=== PATIENT | female | born 1965 | race Caucasian/White ===

== ENCOUNTER 2017-08-22 11:59 | Emergency (ER) | payer OTHER ==
[~2017-08-22] VITALS: Ht 165.1 cm; Wt 70.0 kg
[2017-08-22 12:01] VITALS: BP 115/80; PULSE 128; RESP 20; TEMP 98.8; O2SAT 97
--- NOTE | 2017-08-22 12:25 | PD ---
HPI Chief Complaint: Chest Pain Time Seen by Provider: 12:09 Travel History International Travel<30 days: No Contact w/Intl Traveler<30days: No Traveled to known affect area: No History of Present Illness HPI 51-year-old female presents to emergency department complaining of 20 episodes of nonbloody vomiting since last night. Patient states that she currently has mild, dull lower midsternal chest discomfort after the episodes of vomiting. Patient states the pain does not radiate. States she has had increased shortness of breath especially with supine position but decreases with sitting up. States the pain also increases with laying down. She has had an episode of this prior and her bariatric surgeon called this a "angry stomach" states that previously she has had to decrease the fluid in her lap band to reduce the symptoms. She had let insurgent 2009. Denies any other surgeries or medical issues. Does not take any other medications except for [id number] Prilosec. Patient does not know why she started vomiting. Denies inciting events. PFSH Social History Tobacco Use: No Allergies-Medications (Allergen,Severity, Reaction): Coded Allergies: No Known Allergies (Unverified , 08/22/17) Reported Meds & Prescriptions Reported Meds & Active Scripts Active No Active Prescriptions or Reported Medications Review of Systems Except as stated in HPI: all other systems reviewed are Neg Physical Exam Narrative GENERAL: Well-nourished, well-developed patient. SKIN: Focused skin assessment warm/dry. HEAD: Normocephalic. EYES: No scleral icterus. No injection or drainage. NECK: Supple, trachea midline. No JVD or lymphadenopathy. CARDIOVASCULAR: Regular rate and rhythm without murmurs, gallops, or rubs. RESPIRATORY: Breath sounds equal bilaterally. No accessory muscle use. GASTROINTESTINAL: Abdomen soft, non-tender, nondistended. Positive bowel sounds. No hepato-splenomegaly, or palpable masses. No guarding. Noticeable LAP-BAND port in the left mid abdomen region MUSCULOSKELETAL: No cyanosis, or edema. BACK: Nontender without obvious deformity. No CVA tenderness. Data Data Last Documented VS Vital Signs Date Time Temp Pulse Resp B/P (MAP) Pulse Ox O2 Delivery O2 Flow Rate FiO2 08/22/17 15:08 08/22/17 12:44 98 Room Air 08/22/17 12:01 98.8 128 20 Orders Orders Electrocardiogram (08/22/17 12:18) Ckmb (Isoenzyme) Profile (08/22/17 12:18) Complete Blood Count With Diff (08/22/17 12:18) Comprehensive Metabolic Panel (08/22/17 12:18) Magnesium (Mg) (08/22/17 12:18) Prothrombin Time / Inr (Pt) (08/22/17 12:18) Act Partial Throm Time (Ptt) (08/22/17 12:18) Troponin I (08/22/17 12:18) Lipase (08/22/17 12:18) Chest, Single Ap (08/22/17 12:18) Ecg Monitoring (08/22/17 12:18) Bilateral Bp Monitoring (08/22/17 12:18) Iv Access Insert/Monitor (08/22/17 12:18) Oximetry (08/22/17 12:18) Oxygen Administration (08/22/17 12:18) Aspirin Chew (Aspirin Chew) (08/22/17 12:30) Sodium Chloride 0.9% Flush (Ns Flush) (08/22/17 12:30) Sodium Chlor 0.9% 1000 Ml Inj (Ns 1000 M (08/22/17 12:30) Urinalysis - C+S If Indicated (08/22/17 13:15) Ed Discharge Order (08/22/17 14:37) Labs Laboratory Tests Test 08/22/17 12:20 08/22/17 14:11 White Blood Count 17.4 TH/MM3 Red Blood Count 5.35 MIL/MM3 Hemoglobin 15.8 GM/DL Hematocrit 45.8 % Mean Corpuscular Volume 85.6 FL Mean Corpuscular Hemoglobin 29.6 PG Mean Corpuscular Hemoglobin Concent 34.6 % Red Cell Distribution Width 12.6 % Platelet Count 236 TH/MM3 Mean Platelet Volume 7.3 FL Neutrophils (%) (Auto) 91.7 % Lymphocytes (%) (Auto) 5.1 % Monocytes (%) (Auto) 3.0 % Eosinophils (%) (Auto) 0.0 % Basophils (%) (Auto) 0.2 % Neutrophils # (Auto) 16.0 TH/MM3 Lymphocytes # (Auto) 0.9 TH/MM3 Monocytes # (Auto) 0.5 TH/MM3 Eosinophils # (Auto) 0.0 TH/MM3 Basophils # (Auto) 0.0 TH/MM3 CBC Comment DIFF FINAL Differential Comment Prothrombin Time 10.5 SEC Prothromb Time International Ratio 1.0 RATIO Activated Partial Thromboplast Time 23.9 SEC Blood Urea Nitrogen 10 MG/DL Creatinine 1.03 MG/DL Random Glucose 106 MG/DL Total Protein 8.1 GM/DL Albumin 4.1 GM/DL Calcium Level 9.8 MG/DL Magnesium Level 1.7 MG/DL Alkaline Phosphatase 81 U/L Aspartate Amino Transf (AST/SGOT) 21 U/L Alanine Aminotransferase (ALT/SGPT) 27 U/L Total Bilirubin 1.4 MG/DL Sodium Level 138 MEQ/L Potassium Level 4.2 MEQ/L Chloride Level 103 MEQ/L Carbon Dioxide Level 26.6 MEQ/L Anion Gap 8 MEQ/L Estimat Glomerular Filtration Rate 56 ML/MIN Total Creatine Kinase 50 U/L Troponin I LESS THAN 0.02 NG/ML Lipase 157 U/L Urine Color YELLOW Urine Turbidity CLEAR Urine pH 6.5 Urine Specific [place] 1.006 Urine Protein NEG mg/dL Urine Glucose (UA) NEG mg/dL Urine Ketones 10 mg/dL Urine Occult Blood NEG Urine Nitrite NEG Urine Bilirubin NEG Urine Urobilinogen LESS THAN 2.0 MG/DL Urine Leukocyte Esterase SMALL Urine RBC 1 /hpf Urine WBC 2 /hpf Urine Squamous Epithelial Cells 2 /hpf Urine Transitional Epithelial Cells <1 /hpf Urine Bacteria RARE /hpf Urine Mucus FEW /lpf Microscopic Urinalysis Comment CULT NOT INDICATED MDM Medical Decision Making Medical Screen Exam Complete: Yes Emergency Medical Condition: Yes Differential Diagnosis Lab pain, palpitations, vomiting, acute abdomen Narrative Course 51-year-old female presents to emergency department complaining of 20 episodes of nonbloody vomiting since last night. Patient states that she currently has mild, dull lower midsternal chest discomfort after the episodes of vomiting. Patient states the pain does not radiate. States she has had increased shortness of breath especially with supine position but decreases with sitting up. States the pain also increases with laying down. She has had an episode of this prior and her bariatric surgeon called this a "angry stomach" states that previously she has had to decrease the fluid in her lap band to reduce the symptoms. She had let insurgent 2009. Denies any other surgeries or medical issues. Does not take any other medications except for [id number] Prilosec. Patient does not know why she started vomiting. Denies inciting events. Vital signs- tachycardia present. EKG demonstrates sinus tachycardia right bundle branch block without obvious ST depression or elevation. Last Impressions Chest X-Ray 08/22/17 1218 Signed Impressions: Service Date/Time: Tuesday, August 22, 2017 12:22 - CONCLUSION: No acute disease. Wil Young MD Laboratory Tests Test 08/22/17 12:20 08/22/17 14:11 White Blood Count 17.4 TH/MM3 Red Blood Count 5.35 MIL/MM3 Hemoglobin 15.8 GM/DL Hematocrit 45.8 % Mean Corpuscular Volume 85.6 FL Mean Corpuscular Hemoglobin 29.6 PG Mean Corpuscular Hemoglobin Concent 34.6 % Red Cell Distribution Width 12.6 % Platelet Count 236 TH/MM3 Mean Platelet Volume 7.3 FL Neutrophils (%) (Auto) 91.7 % Lymphocytes (%) (Auto) 5.1 % Monocytes (%) (Auto) 3.0 % Eosinophils (%) (Auto) 0.0 % Basophils (%) (Auto) 0.2 % Neutrophils # (Auto) 16.0 TH/MM3 Lymphocytes # (Auto) 0.9 TH/MM3 Monocytes # (Auto) 0.5 TH/MM3 Eosinophils # (Auto) 0.0 TH/MM3 Basophils # (Auto) 0.0 TH/MM3 CBC Comment DIFF FINAL Differential Comment Prothrombin Time 10.5 SEC Prothromb Time International Ratio 1.0 RATIO Activated Partial Thromboplast Time 23.9 SEC Blood Urea Nitrogen 10 MG/DL Creatinine 1.03 MG/DL Random Glucose 106 MG/DL Total Protein 8.1 GM/DL Albumin 4.1 GM/DL Calcium Level 9.8 MG/DL Magnesium Level 1.7 MG/DL Alkaline Phosphatase 81 U/L Aspartate Amino Transf (AST/SGOT) 21 U/L Alanine Aminotransferase (ALT/SGPT) 27 U/L Total Bilirubin 1.4 MG/DL Sodium Level 138 MEQ/L Potassium Level 4.2 MEQ/L Chloride Level 103 MEQ/L Carbon Dioxide Level 26.6 MEQ/L Anion Gap 8 MEQ/L Estimat Glomerular Filtration Rate 56 ML/MIN Total Creatine Kinase 50 U/L Troponin I LESS THAN 0.02 NG/ML Lipase 157 U/L Urine Color YELLOW Urine Turbidity CLEAR Urine pH 6.5 Urine Specific [place] 1.006 Urine Protein NEG mg/dL Urine Glucose (UA) NEG mg/dL Urine Ketones 10 mg/dL Urine Occult Blood NEG Urine Nitrite NEG Urine Bilirubin NEG Urine Urobilinogen LESS THAN 2.0 MG/DL Urine Leukocyte Esterase SMALL Urine RBC 1 /hpf Urine WBC 2 /hpf Urine Squamous Epithelial Cells 2 /hpf Urine Transitional Epithelial Cells <1 /hpf Urine Bacteria RARE /hpf Urine Mucus FEW /lpf Microscopic Urinalysis Comment CULT NOT INDICATED This patient denies symptoms currently. Says that she feels well and requests to see a bariatric specialist for deflation of her lap band. Patient is from out of town and will be and [place] until Tuesday. Patient is willing to wait until tomorrow to visit the specialist. Reassessed pt. Says she feels better, water tolerated well. There were no episodes of abdominal pain, chest pain, or vomiting in the emergency department today. I discussed this patient with Dr. Padilla and he agreed with the treatment plan. I consulted with Dr. Blunt regarding this patient's case. States that she should call the office tomorrow for evaluation and possible treatment. I explained to the patient my findings and concerns. I offered the patient inpatient admission for evaluation along with outpatient evaluation. Patient opted for outpatient evaluation for her lap band. Because patient has had these symptoms prior, I did not feel imaging was necessary at this time. Cardiac etiology was the least likely cause of her symptoms based off of her history and physical. She has leukocytosis but suspect this is secondary to her recent vomiting episodes. Patient was to follow-up with her primary care physician. Return to the emergency room for worsening or persistent symptoms. Advised to call Dr. Blunt's office tomorrow for evaluation and possible treatments. Patient states understanding and will comply. Diagnosis Primary Impression: Vomiting Qualified Codes: R11.2 - Nausea with vomiting, unspecified Referrals: Bret Gurrola MD Additional Instructions: Call [phone] tomorrow for an appointment at Dr. Blunt's office, general surgeon regarding her LAP-BAND. Follow up with your primary care physician within 2-3 days. If your symptoms persist or worsen, return to the emergency department. Continue to take small amounts of fluid and food as tolerated. Scripts No Active Prescriptions or Reported Meds Disposition: 01 DISCHARGE HOME Condition: Stable Gretta Howell Aug 22, 2017 12:25
[2017-08-22] MEDS ORDERED: SODIUM CHLOR 0.9% 1000 ML INJ 1,000 ML IV ONE (12:30)
[2017-08-22] MEDS ORDERED: ASPIRIN 81 MG CHEW TAB PO ONE (12:30)
[2017-08-22] MEDS ORDERED: SODIUM CHLORIDE 0.9% FLUSH 10 ML FLUSH IVF PRN (12:30)
[2017-08-22 12:44] VITALS: O2SAT 97
[2017-08-22 12:48] LABS: BASOPHIL % 0.2 % (0.0-2.0); HEMATOCRIT 45.8 % (35.0-46.0); HEMOGLOBIN 15.8 GM/DL (11.6-15.3); LYMPH % 5.1 % (9.0-44.0); LYMPHOCYTE # 0.9 TH/MM3 (1.0-4.8); MEAN CELL VOLUME 85.6 FL (80.0-100.0); MEAN CORPUSCULAR HEMOGLOBIN 29.6 PG (27.0-34.0); MEAN CORPUSCULAR HGB CONC 34.6 % (32.0-36.0); MEAN PLATELET VOLUME 7.3 FL (7.0-11.0); MONOCYTE # 0.5 TH/MM3 (0-0.9); NEUT % 91.7 % (16.0-70.0); PLATELET COUNT 236 TH/MM3 (150-450); RED BLOOD COUNT 5.35 MIL/MM3 (4.00-5.30); RED CELL DISTRIBUTION WIDTH 12.6 % (11.6-17.2); WHITE BLOOD COUNT 17.4 TH/MM3 (4.0-11.0)
[2017-08-22 12:51] LABS: PROTHROMBIN TIME - PATIENT 10.5 SEC (9.8-11.6)
[2017-08-22 12:59] LABS: ALBUMIN 4.1 GM/DL (3.4-5.0); ALT (GPT) 27 U/L (10-53); AST (GOT) 21 U/L (15-37); BICARBONATE 26.6 MEQ/L (21.0-32.0); BLOOD UREA NITROGEN 10 MG/DL (7-18); CALCIUM 9.8 MG/DL (8.5-10.1); CHLORIDE 103 MEQ/L (98-107); CREATININE 1.03 MG/DL (0.50-1.00); GLOMERULAR FILTRATION RATE 56 ML/MIN (>89); GLUCOSE,RANDOM 106 MG/DL (74-106); LIPASE 157 U/L (73-393); MAGNESIUM 1.7 MG/DL (1.5-2.5); SODIUM (NA) 138 MEQ/L (136-145)
--- NOTE | 2017-08-22 12:59 | RADRPT ---
EXAM DATE/TIME: 08/22/2017 12:22 [facility] COMPARISON: No previous studies available for comparison. INDICATIONS : Chest pain. MEDICAL HISTORY : None. SURGICAL HISTORY : Lap band. ENCOUNTER: Initial ACUITY: 2 days PAIN SCORE: 5/10 LOCATION: Bilateral chest FINDINGS: A single view of the chest demonstrates the lungs to be symmetrically aerated without evidence of mas s, infiltrate or effusion. The cardiomediastinal contours are unremarkable. Osseous structures are intact. There is a suspected lap band in the left upper quadrant. CONCLUSION: No acute disease. Wil Young MD on August 22, 2017 at 12:57 Board Certified Radiologist. This report was verified electronically.
[2017-08-22 13:03] LABS: ALKALINE PHOSPHATASE 81 U/L (45-117); TOTAL BILIRUBIN ADULT 1.4 MG/DL (0.2-1.0); TOTAL PROTEIN 8.1 GM/DL (6.4-8.2); TROPONIN I LESS THAN 0.02 NG/ML (0.02-0.05)
[2017-08-22 14:24] LABS: BACTERIA, URINE RARE /hpf; BILIRUBIN, URINE NEG (NEG); BLOOD, URINE NEG (NEG); GLUCOSE,URINE NEG (NEG); KETONE, URINE 10 mg/dL (NEG); MUCUS URINE FEW /lpf (OCC); NITRITE,URINE NEG (NEG); PH, URINE 6.5 (5.0-8.5); SQUAMOUS EPITHELIAL CELL URINE 2 /hpf (0-5); TRANSITIONAL EPI CELLS, URINE <1 /hpf; URINE COLOR YELLOW (YELLW/STRAW); URINE LEUKOCYTE ESTERASE SMALL (NEG)
--- NOTE | 2017-08-23 16:50 | EKG ---
Date Performed: 08/22/2017 Time Performed: 12:22:24 PTAGE: 51 years EKG: SINUS TACHYCARDIA RIGHT BUNDLE BRANCH BLOCK LEFT ANTERIOR FASCICULAR BLOCK POSSIBLE SEPTAL MYOCARDIAL INFARCTION ABNORMAL ECG NO PREVIOUS TRACING DOCTOR: Shira Douglas Interpretating Date/Time 08/23/2017 16:49:41
== END 2017-08-22 15:09 | disposition home or self-care (01) ==
LOC: NEPE 11:59
DX: R11.10 Vomiting, unspecified (principal); D72.829 Elevated white blood cell count, unspecified; R07.89 Other chest pain; R06.02 Shortness of breath; R00.0 Tachycardia, unspecified; I45.10 Unspecified right bundle-branch block; I44.4 Left anterior fascicular block; R94.31 Abnormal electrocardiogram [ECG] [EKG]
CPT/HCPCS: 71045; 80053; 81001; 82550; 83690; 83735; 84484; 85025; 85610; 85730; 93005; 99285; J7030